=== PATIENT | male | born 1975 | race Two or more races ===

== ENCOUNTER 2018-01-21 11:16 | Emergency (ER) | payer SELFPAY | END 2018-01-21 13:46 | disposition home or self-care (01) | LOC: ER 11:16 | DX: T16.1XXA Foreign body in right ear, initial encounter (principal); X58.XXXA Exposure to other specified factors, initial encounter; Y93.89 Activity, other specified; Y92.89 Other specified places as the place of occurrence of the external cause; Y99.8 Other external cause status | CPT/HCPCS: 99282 ==